=== PATIENT | female | born 1970 | race Caucasian/White ===

== ENCOUNTER 2019-09-20 00:21 | Outpatient (CLI) | payer OTHER, SELFPAY ==
[2019-09-20 17:26] LABS: SARS-CoV-2 RNA PCR Negative
== END 2019-09-20 00:22 | disposition home or self-care (01) ==
LOC: ANHCOVIDDT 00:22
PROVIDERS: PCP Internal Medicine Infectious Disease; Visit Provider Obstetrics & Gynecology
DX: Z01.818 Encounter for other preprocedural examination (principal); Z11.59 Encounter for screening for other viral diseases
CPT/HCPCS: 87635; C9803; U0003

== ENCOUNTER 2019-09-20 09:28 | Outpatient (CLI) | payer OTHER, SELFPAY ==
--- NOTE | 2019-09-20 09:29 | ECG_ITS ---
Measurements Intervals [place] Rate: 83 P: 66 NC: 192 QRS: -32 QRSD: 98 T: 40 QT: 376 QTc: 443 Interpretive Statements SINUS RHYTHM LEFT AXIS DEVIATION INCOMPLETE RIGHT BUNDLE BRANCH BLOCK BASELINE ARTIFACT- I, II, III BORDERLINE ECG Electronically Signed On 09-20-2019 9:42:58 CDT by Jimi Nye D.O.
[2019-09-20 10:07] LABS: Blood Urea Nitrogen 7 mg/dL (7-17); Calcium 9.1 mg/dL (8.4-10.2); Carbon Dioxide 31 mmol/L (22-30); Chloride 99 mmol/L (98-107); Estimated Glomerular Filt Rate > 60; Glucose 119 mg/dL (65-105); Potassium 3.5 mmol/L (3.4-5.0); Sodium 135 mmol/L (137-145)
[2019-09-23 09:51] LABS: Carbamazepine Tegretol 1.5 mcg/mL (4.0-12.0)
== END 2019-09-20 09:29 | disposition home or self-care (01) ==
LOC: ANHSURGERY 09:29
PROVIDERS: Anesthesiology; PCP Internal Medicine Infectious Disease; Visit Provider Obstetrics & Gynecology
DX: Z01.818 Encounter for other preprocedural examination (principal); I10 Essential (primary) hypertension; Z51.81 Encounter for therapeutic drug level monitoring
CPT/HCPCS: 36415; 80048; 80156; 93005

== ENCOUNTER 2019-09-23 00:19 | Day surgery (SDC) | payer OTHER, SELFPAY ==
[2019-09-23] VITALS (9 sets, daily range): BP systolic 105–145; BP diastolic 65–86; PULSE 55–103; RESP 14–18; TEMP 36.2–36.4; O2SAT 91–100
--- NOTE | 2019-09-23 08:06 | P.PNAN_ITS ---
Anes - Initial Pre Proc Eval Procedure: Operation Date: 09/23/19 12:00 Proposed Procedures p Laparoscopic Bilateral Salpingectomy, Possible Right Oophorectomy, Possible Lysis Of Adhesions - Denia Garsia MD Date/Time: 09/23/19 08:06 Surgeon: Denia Garsia MD Pre Op Diagnosis: Ovarian Abscess/ Pelvic Pain Patient Data Age: 48 Gender: F Height: 1.7 m Weight: 87.09 kg Allergies Allergy/AdvReac Type Severity Reaction Status Date / Time amoxicillin Allergy Severe Anaphylaxis Verified 09/23/19 10:22 oseltamivir [From Tamiflu] Allergy Severe Hives Verified 09/23/19 10:22 Penicillins Allergy Severe Anaphylaxis Verified 09/23/19 10:22 Home Medications Medication Instructions Recorded Confirmed Type carbamazepine 200 mg PO DAILY 09/13/19 09/23/19 History cetirizine 10 mg PO DAILY 09/13/19 09/23/19 History hydrochlorothiazide 25 mg PO DAILY 09/13/19 09/23/19 History losartan 100 mg PO DAILY 09/13/19 09/23/19 History multivitamin 1 tablet PO DAILY 09/13/19 09/23/19 History norgestimate-ethinyl estradiol 1 tablet PO DAILY 09/13/19 09/23/19 History [Schleicher-Linyah] ECG: Date of Service: 09/20/19 Procedure(s): CA 12 lead EKG Accession Number(s): [id number] cc: ~ Measurements Intervals [place] Rate: 83 P: 66 NM: 192 QRS: -32 QRSD: 98 T: 40 QT: 376 QTc: 443 Interpretive Statements SINUS RHYTHM LEFT AXIS DEVIATION INCOMPLETE RIGHT BUNDLE BRANCH BLOCK BASELINE ARTIFACT- I, II, III BORDERLINE ECG Electronically Signed On 09-20-2019 9:42:58 CDT by Jimi Nye D.O. Dictated By: Jimi Nye DO 09/20/19 0958 Patient hx anesthesia problems: none Family hx anesthesia problems: none [facility] Past Medical History Medical History (Updated 09/23/19 @ 08:08 by Eulogio Dimas MD) Cluster headaches Gastroesophageal reflux disease HTN (hypertension) Obesity Anes - Eval Final PreProcedure Day of Procedure 09/23/19 08:06 Patient weight: obese Heart: regular rate and rhythm Lungs: clear to auscultation and normal air movement Airway: Mallampati scale class II Neurological: alert and oriented Last oral intake: >/= 8 hours ASA classification: II Emergent: no Anesthetic plan: proceed Anesthesia type and monitoring: general ETT Informed Consent: The patient's anesthetic plan and its attendant risks and benefits were discussed with the patient/family/POA. Questions were solicited and answers provided to the satisfaction of the patient/family/POA.
--- NOTE | 2019-09-23 09:26 | HP_ITS ---
DATE OF SERVICE: Surgery is scheduled for today, September 22. HISTORY OF PRESENT ILLNESS: The patient is a 48-year-old, G10, P3-0-7-3, who came to me for consultation after she was admitted to the hospital at [facility] in early August for a pelvic abscess. She had it drained by General Surgery. She was told it was a tubo-ovarian abscess based on the culture results as opposed to diverticulitis, which was another initial thought. She still has right lower quadrant pain, intermittent, but becoming more frequent and she is having a difficult time walking due to pain. She is amenorrheic after having an endometrial ablation. She has mild night sweats, but is taking an oral contraceptive to help with menopause symptoms and with moods. She just recently finished a 2-week course of antibiotics. She has had no new sexual partner. No urinary or bowel complaints. No vaginal discharge. PAST MEDICAL HISTORY: Hypertension, left knee arthritis, cluster headaches. MEDICATIONS: 1. Carbamazepine. 2. Losartan. 3. Meloxicam. 4. Oral contraceptive. ALLERGIES: SHE IS ALLERGIC TO AMOXICILLIN, PENICILLIN, AND TAMIFLU. SOCIAL HISTORY: Negative for tobacco or drug use. She occasionally drinks alcohol. OB HISTORY: She has had 3 vaginal deliveries, 1 miscarriage and 6 elective abortions. 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 No history of STDs. PAST SURGICAL HISTORY: Laparoscopic cholecystectomy, laparoscopic bilateral tubal ligation plus endometrial ablation, and the recent drainage of a tubo-ovarian abscess. FAMILY HISTORY: Negative for gynecologic malignancy. REVIEW OF SYSTEMS: Negative. PHYSICAL EXAMINATION: VITAL SIGNS: She is afebrile with normal vital signs. GENERAL: No apparent distress. HEART: Regular rate and rhythm. LUNGS: Clear to auscultation. ABDOMEN: Soft, mildly tender in the right lower quadrant. No rebound or guarding. No masses palpable. PELVIC: Uterus is normal size, nontender, mobile, smooth. Both adnexa are mildly tender with no palpable mass. Right side is more tender than the left. IMAGING: Recent imaging still shows a fluid collection versus hydrosalpinx or pyosalpinx on the right fallopian tube. ASSESSMENT AND PLAN: Recent tubo-ovarian abscess, improved, but not fully with antibiotics and she is still having symptoms. She wants to proceed with surgical therapy. She signed consent for laparoscopic bilateral salpingectomy, possible right oophorectomy, and lysis of adhesions after the risks, benefits, complications, and alternatives were discussed. D I MT: Azam
[2019-09-23] MEDS: LACTATED RINGERS 1,000 ML 30 ML IV CONT ×2 (10:15→13:56)
--- NOTE | 2019-09-23 12:29 | WPDHPUPDATE1 ---
History and Physical Update Update Date/Time: 09/23/19 12:29 History and Physical has been reviewed, including an updated exam of the patient. There are NO changes in the patient's condition. Risks, benefits, and alternatives have been discussed and questions answered. Patient agrees to proceed with procedure.
--- NOTE | 2019-09-23 12:43 | PM.OP ---
Procedure Note - Brief Procedure Note - Brief Date of procedure: 09/23/19 Pre-op diagnosis: Ovarian Abscess/ Pelvic Pain Post-op diagnosis: other (Pelvic pain, dense pelvic adhesions) Procedure performed: Diagnostic laparoscopy, lysis of adhesions Anesthesia: GETA Surgeon: Denia Garsia MD Estimated blood loss (mL): 5 Drains: No Packing: No Pathology: none sent Complications: No immediate complications Condition: stable Disposition: PACU Findings: Multiple dense adhesions of colon and small bowel to anteriorabdominal wall. Uterus normal on right side (remainder not visible). Ovaries and fallopian tubes not visible. Appendix mildly enlarged but not inflammed. Liver and RUQ normal. Gall bladder surgically absent
[2019-09-23] MEDS: BUPIVACAINE/EPINEPHRINE 0.5% 30 ML VIAL INFILTRATE (13:11)
[2019-09-23] MEDS: KETOROLAC 30 MG/ML VIAL (*BKC) IV PUSH (13:36)
--- NOTE | 2019-09-23 16:28 | SUR.PHASEII ---
1600: Patient was very emotional and upset because scheduled procedure didn't go as planned. RN ran into Dr. Aldridge and asked him for clarification on what he saw during the procedure to give a better explanation to patient. Patient was upset that no surgeon spoke [id number] with her or her . RN made patient aware that she spoke with her and gave him a update as well as went over the discharge instructions with him. RN also explained to patient that it isn't just the surgeons involved in her surgery that don't always speak directly to the patient. This is because they may not remember the conversation due to the anesthesia. Post-op RN had patient's phone number instead of her 's so that is why there was a delay in getting ahold of him. RN apologized to patient and her numerous times. RN also offered to call Dr. Garsia's office and have Dr. Garsia speak to her on the phone. Patient denied offer. RN also offered to call Dr. Garsia and if I got ahold of her did she want them to personally call her at home. Patient also denied this offer. Patient threw up arms and said, Get me out of here! I just want to leave now. RN said ok I will take out your IV and offered assistance in getting dressed. Patient denied all offers and was very rude to RN. RN emailed management to follow-up tomorrow (09-24-2019).
--- NOTE | 2019-09-23 18:42 | OP_ITS ---
DATE OF PROCEDURE: 09/23/2019 PREOPERATIVE DIAGNOSES: Pelvic pain, tubo-ovarian abscess. POSTOPERATIVE DIAGNOSES: Pelvic pain, dense abdominal and pelvic adhesions. ANESTHESIA: General endotracheal tube. ESTIMATED BLOOD LOSS: 5 mL. COMPLICATIONS: None. INTRAOPERATIVE CONSULTATION WAS DONE BY: Dr. Aldridge. INDICATIONS: A 48-year-old, G10, P3-0-7-3, who came to me for consultation after being admitted about a month ago at [facility] for a pelvic abscess. She was seen by General Surgery. She was told it was a tubo-ovarian abscess based on the culture results as opposed to diverticulitis. She is still having right lower quadrant pain, intermittent, and is becoming more frequent and she is having difficulty walking due to the pain. She just finished a 2-week course of antibiotics, but she is still having continued pain. We opted to proceed with surgical evaluation and she signed consent for laparoscopic bilateral salpingectomy, possible right oophorectomy and lysis of adhesions. FINDINGS: Dense multiple adhesions of the colon and small bowel to the anterior abdominal wall. Normal liver and right upper quadrant. The uterus was only seen on the right side which did look normal, but the ovaries were not seen and fallopian tubes were also not seen. DESCRIPTION OF PROCEDURE: For the procedure, the patient was taken to the operating room where general anesthesia was obtained. She was prepared and draped in the normal sterile fashion in the dorsal lithotomy position. Marcaine was injected infraumbilically and a 5 mm skin incision was made in the infraumbilical fold with a scalpel. A 5 mm non-bladed trocar was then placed with the camera in the trocar under direct visualization into the peritoneal cavity. Insufflation was begun and she was placed in Trendelenburg. Dense adhesions of the anterior abdominal wall were noted more prominent in the midline, so a 5 mm trocar was placed in the right lower quadrant under direct visualization and a third 5 mm trocar in the left lower quadrant under direct visualization. Attempt was made to remove some of the adhesions. There were only a few filmy areas between the bowel and anterior abdominal wall also and request was made for consultation from General Surgery. Dr. Aldridge did come in and stated that he would need to do an open laparotomy to take down the adhesions and since the patient does not had a bowel preparation done at that time, and a colectomy is a possibility, he recommended terminating this surgery and then he will have an outpatient consultation with General Surgery, so if she does need to have a further surgery could be done under more ideal circumstances. So, at that point, there was 1 area that just looked like a small hole that was likely just connecting 2 different parts of the peritoneal cavity, but since her abdominal anatomy was very distorted and unable to see clear planes between tissues. A catheter was positioned in the bladder and the bladder was filled with methylene blue tinted saline to distend the bladder. There was no fluid coming from the small hole that was seen and the bladder was filled to its maximum capacity using a gentle force on the syringe and the catheter and then the bladder was allowed to drain. The pneumoperitoneum was then allowed to escape. All 3 trocars were removed and all 3 skin incisions were closed using 4-0 Monocryl in subcuticular fashion. She tolerated the procedure well. Sponge, lap, needle, and instrument counts were correct x2 and she was taken to the recovery room in stable condition. [place] I MT: Azam JOHNSON
== END 2019-09-23 16:15 | disposition home or self-care (01) ==
PROVIDERS: PCP Internal Medicine Infectious Disease; Visit Provider Obstetrics & Gynecology
PROC: (CPT 49320; principal; 2019-09-23 12:00)
DX: N73.6 Female pelvic peritoneal adhesions (postinfective) (principal); R10.2 Pelvic and perineal pain; I10 Essential (primary) hypertension; K21.9 Gastro-esophageal reflux disease without esophagitis; E66.9 Obesity, unspecified; Z68.29 Body mass index [BMI] 29.0-29.9, adult
CPT/HCPCS: 49320; A9270; J1100; J1170; J1885; J2250; J2405; J2704; J2710; J3010; J7030; J7120; Q9968